=== PATIENT | male | born 2000 | race Caucasian/White ===

== ENCOUNTER → 2022-04-23 | Outpatient (CLI) | payer SELFPAY, OTHER ==
--- NOTE | 2022-04-23 09:03 | CT_ITS ---
STUDY: CT LEFT ELBOW WITHOUT CONTRAST REASON FOR EXAM: Male, 21 years old. DISP FX OF NECK. FELL 10 FT FROM ROOF ON MONDAY, LTD ABILITY TO MOVE ARM DUE TO FX RADIATION DOSAGE (If Supplied By Facility): CTDIvol = ( 24.58 ) mGy, DLP = ( 1429.83 ) mGycm TECHNIQUE: Transaxial CT imaging of the elbow was performed. Sagittal and coronal images were reconstructed. Individualized dose optimization techniques were used for this CT. COMPARISON: None. FINDINGS: An acute impaction fracture of the radial head neck junction is present with mild displacement and cortical offset, but with spurring of the proximal articular surface of the radial head. No additional acute fractures are present. Small ossicle posterior to the medial humeral epicondyle most likely developmental and related to an unfused apophysis. Mild to moderate subcutaneous edema of the elbow joint in the distal aspect of the upper arm is present. Mild intramuscular edema surrounding the radial head neck fracture site is also visualized. Normal visualized humerus and ulna. Normal radiocapitellar and ulnotrochlear articulations. CT/Extremity Upper without Contra IMPRESSION: 1. Acute impaction fracture of the radial head neck junction with mild cortical offset and displacement. Associated soft tissue swelling is present around the fracture site. Electronically Signed: Guerrero Cates MD at 12:16 [facility] ,
--- NOTE | 2022-04-23 09:09 | CT_ITS ---
STUDY: CT LEFT WRIST WITHOUT CONTRAST REASON FOR EXAM: Male, 21 years old. FELL 10 FT FROM ROOF ON MONDAY, LTD ABILITY TO MOVE ARM DUE TO FX RADIATION DOSAGE (If Supplied By Facility): CTDIvol = ( 24.58 ) mGy, DLP = ( 1429.83 ) mGycm TECHNIQUE: Transaxial CT imaging of the wrist was performed. Sagittal and coronal images were reconstructed. COMPARISON: None. FINDINGS: An acute linear fractures present across the waist of the scaphoid without displacement. Mild subcutaneous edema is present around the wrist and hand. The muscles are unremarkable. Normal remaining carpal bones. Normal visualized distal radius and ulna. Normal radiocarpal articulation. Normal distal radioulnar articulation. Normal carpal articulations. Normal carpometacarpal articulation of the thumb. Normal second through fifth carpometacarpal articulations. Normal visualized metacarpal bones. CT/Extremity Upper without Contra IMPRESSION: 1. Acute nondisplaced linear fracture through the waist of the scaphoid Electronically Signed: Guerrero Cates MD at 9:54 EST ,
== END | disposition home or self-care (01) ==
LOC: CT 09:01
PROVIDERS: PCP Family Medicine; Referring Provider Student in an Organized Health Care Education/Training Program; Visit Provider Student in an Organized Health Care Education/Training Program
DX: S52.132A Displaced fracture of neck of left radius, initial encounter for closed fracture (principal); S62.022A Displaced fracture of middle third of navicular [scaphoid] bone of left wrist, initial encounter for closed fracture
CPT/HCPCS: 73200

== ENCOUNTER → 2022-07-09 | Outpatient (CLI) | payer SELFPAY, OTHER ==
--- NOTE | 2022-07-09 08:45 | CT_ITS ---
EXAM: CT Wrist W/O Contrast Injection INDICATION: Male, 22 years old. History of posttraumatic scaphoid fracture RADIATION DOSAGE (If Supplied By Facility): CTDIvol = ( 17.21 ) mGy, DLP = ( 370.99 ) mGycm TECHNIQUE: Transaxial CT imaging of the wrist was performed without intravenous contrast, followed by coronal and sagittal reformatting. Individualized dose optimization techniques were used for this CT. COMPARISON: 04/23/2022 FINDINGS: BONES: There has been interval sclerotic change along the fracture margin of the mid scaphoid with minimal residual visualization of the fracture cleft along the ulnar-sided cortex. No new fracture. No lytic or blastic lesion. JOINTS: Joints are in normal alignment. No periarticular degenerative or inflammatory change. SOFT TISSUES: Soft tissues are unremarkable. CT/Extremity Upper without Contra IMPRESSION: Near complete interval healing of a mid scaphoid fracture. Electronically Signed: Luc Hoover MD at 10:49 EST ,
== END | disposition home or self-care (01) ==
LOC: CT 08:40
PROVIDERS: PCP Family Medicine; Visit Provider Student in an Organized Health Care Education/Training Program
DX: S62.025D Nondisplaced fracture of middle third of navicular [scaphoid] bone of left wrist, subsequent encounter for fracture with routine healing (principal)
CPT/HCPCS: 73200